=== PATIENT | male | born 1955 | race Two or more races ===

== ENCOUNTER 2018-02-20 07:45 | Outpatient (CLI) | payer OTHER | END 2018-02-20 07:53 | disposition home or self-care (01) | LOC: TOM 07:45 | DX: E11.59 Type 2 diabetes mellitus with other circulatory complications (principal); I50.32 Chronic diastolic (congestive) heart failure; G47.39 Other sleep apnea ==

== ENCOUNTER → 2018-03-12 | Outpatient (CLI) | payer OTHER | END | disposition home or self-care (01) | LOC: NUCLEAR 08:00 | DX: R93.8 Abnormal findings on diagnostic imaging of other specified body structures (principal) | CPT/HCPCS: 78816; A9552 ==